=== PATIENT | female | born 1970 | race Hispanic/Latino ===

== ENCOUNTER 2024-01-07 14:00 | Inpatient (IN) | payer BC ==
[2024-01-06 14:45] VITALS: BP 109/69; PULSE 120; RESP 16; TEMP 97.7
[2024-01-06 14:51] LABS: BASOPHILS # (AUTO) 0.04 K/uL (0.00-0.20); BASOPHILS % (AUTO) 0.5 % (0.0-5.0); EOSINOPHILS # (AUTO) 0.23 K/uL (0.00-0.70); EOSINOPHILS % (AUTO) 3.1 % (0.0-8.0); HEMATOCRIT 44.5 % (36-48); IMMATURE GRANULOCYTE ABSOLUTE 0.02 K/uL (0-1); LYMPHOCYTES # (AUTO) 2.2 K/uL (1.0-4.8); LYMPHOCYTES % (AUTO) 29.3 % (21.0-51.0); MEAN CORPUSCULAR HEMOGLOBIN 29.3 pg (27.0-33.0); MEAN CORPUSCULAR HGB CONC 34.2 g/dL (32.0-36.0); MEAN CORPUSCULAR VOLUME 85.7 fL (79-99); MONOCYTES # (AUTO) 0.6 K/uL (0.1-1.0); MONOCYTES % (AUTO) 7.4 % (3.0-13.0); NEUTROPHILS # (AUTO) 4.4 K/uL (1.8-7.7); NEUTROPHILS % (AUTO) 59.4 % (40.0-77.0); PLATELET COUNT (AUTO) 213 K/uL (130-400); RED BLOOD CELL COUNT(AUTO) 5.19 MIL/uL (4.00-5.50); RED CELL DISTRIBUTION WIDTH 13.5 % (11.0-15.5); WHITE BLOOD COUNT (AUTO) 7.4 K/uL (4.8-10.8)
[2024-01-06 15:02] LABS: CREATININE 1.1 mg/dL (0.5-1.0); POTASSIUM 3.7 mmol/L (3.5-5.1)
[~2024-01-07] VITALS: Ht 160 cm; Wt 84.1 kg
[~2024-01-07 14:00] MED LIST: AMLO-257 PO; ATOR10 PO; BUSP7.5T7 PO; DOCU100T PO; ERGO500093 PO; FAMO40TA7 PO; FLUO20TA29 PO; LEVO50CA4 PO; PANT40TA54 PO; RISA150S2 SQ; TELM1TAB32 PO
[2024-01-08] VITALS (20 sets, daily range): BP systolic 125–150; BP diastolic 72–93; PULSE 74–110; RESP 15–20; TEMP 96.9–97.7; O2SAT 95
[2024-01-08] MEDS: LACTATED RINGERS 1000ML 1,000 ML IV ONE (11:52)
[2024-01-08] MEDS: ceFAZolin SODIUM 2 GM VIAL ONE (11:52)
[2024-01-08] MEDS ORDERED: BUPIvacaine/PF 0.25% 30ML VIAL IJ ONE (17:15)
[2024-01-08] MEDS ORDERED: rocuRONium bROMide 10MG/1ML 5ML VL ONE (17:49)
[2024-01-08] MEDS ORDERED: metoCLOPRAmide 10 MG/2 ML VIAL ONE (17:49)
[2024-01-08] MEDS ORDERED: FENTanyl CITRate PF 50 MCG/1 ML 5ML AMP IV ONE (17:49)
[2024-01-08] MEDS ORDERED: LIDOCAINE PF 100MG/5ML (2%) SYRINGE 5ML ONE (17:49)
[2024-01-08] MEDS ORDERED: SUCCINYLCHOLINE CHLORIDE 20 MG/ML 10 ML VIAL ONE (17:49)
[2024-01-08] MEDS ORDERED: MIDAZOLAM HCL 1 MG/ML 2ML VIAL ONE (17:49)
[2024-01-08] MEDS ORDERED: proPOFol 10 MG/ML 20ML VIAL IV ONE (17:49)
[2024-01-08] MEDS ORDERED: ondanSETRON 4MG INJ ONE (17:49)
[2024-01-08] MEDS: ceFAZolin SODIUM 2 GM VIAL IVPB ONE (17:49)
[2024-01-08] MEDS ORDERED: dexaMETHasone SOD PHOSPHATE 10MG/ML 1ML VIAL ONE (17:49)
[2024-01-08] MEDS ORDERED: ePHEDrine SULFate 50 MG/ML AMPULE ONE (18:16)
[2024-01-08] MEDS ORDERED: BACITRACIN 28.4 GM OINT TP ONE (19:29)
[2024-01-08] MEDS ORDERED: NEOSTIGMINE METHYLSULFATE 1MG/ML IV ONE (19:47)
[2024-01-08] MEDS ORDERED: GLYCOPYRROLATE 0.2 MG/ML 5 ML VIAL ONE (19:47)
[2024-01-08] MEDS ORDERED: morPHINE 4 MG SYG IVP PRN (20:00)
[2024-01-08] MEDS ORDERED: PROCHLORPERAZINE 10MG/2ML INJ IV PRN (20:00)
[2024-01-08] MEDS ORDERED: HYDROcod/acetaMINOPHEN 7.5/325 MG 15 ML UDCUP PO PRN (20:00)
[2024-01-08] MEDS ORDERED: ondanSETRON 4MG INJ IVP PRN (20:00)
[2024-01-08] MEDS: MEPERIDINE-PF 25 MG/ML SYG ONE (20:13)
[2024-01-08] MEDS: D5LR-20 MEQ KCL 1000 ML 1,000 ML IV SCH (21:14)
[2024-01-08] MEDS: ketOROlac 30MG VIAL (30MG/ML) IV PRN (21:15)
[2024-01-08] MEDS: ENOXAPARIN SODIUM 30 MG/0.3 ML SQ SCH (21:15)
[2024-01-09] VITALS (9 sets, daily range): BP systolic 120–168; BP diastolic 70–90; PULSE 84–138; RESP 18–20; TEMP 97.6–98.2; O2SAT 96–97
== END 2024-01-09 18:50 | disposition home or self-care (01) | DRG 328 ==
LOC: DAHIP 01-08 11:21 → 4CH 01-08 21:03
PROVIDERS: ADMIT Surgery; ATTEND Surgery
PROC: 0WQF0ZZ Repair Abdominal Wall, Open Approach (ICD-10-PCS; 2024-01-08)
PROC: 8E0W4CZ Robotic Assisted Procedure of Trunk Region, Percutaneous Endoscopic Approach (ICD-10-PCS; 2024-01-08)
PROC: 0DJ08ZZ Inspection of Upper Intestinal Tract, Via Natural or Artificial Opening Endoscopic (ICD-10-PCS; 2024-01-08)
PROC: 0DUU47Z Supplement Omentum with Autologous Tissue Substitute, Percutaneous Endoscopic Approach (ICD-10-PCS; 2024-01-08)
PROC: 0DB64ZZ Excision of Stomach, Percutaneous Endoscopic Approach (ICD-10-PCS; principal; 2024-01-08 17:49)
PROC: 0D164ZA Bypass Stomach to Jejunum, Percutaneous Endoscopic Approach (ICD-10-PCS; 2024-01-08 17:49)
DX: K31.84 Gastroparesis (principal); K42.9 Umbilical hernia without obstruction or gangrene; K21.9 Gastro-esophageal reflux disease without esophagitis; F41.9 Anxiety disorder, unspecified; I10 Essential (primary) hypertension; Z85.038 Personal history of other malignant neoplasm of large intestine; Z90.49 Acquired absence of other specified parts of digestive tract
CPT/HCPCS: 36415; 43235; 80048; 84703; 85025; 86850; 86900; 86901; 93005; G0378; J0330; J1100; J1650; J1885; J2003; J2175; J2250; J2405; J2704; J2710; J2765; J3010; J3480; J3490; J7030; J7120; A4213; A4215; A4216; A4221; A4222; A4223; A4600; A4663; A4930; A6260; G8980-CI; G8983-CI; J0665; J0690